=== PATIENT | male | born 1980 | race Two or more races ===

== ENCOUNTER 2021-07-28 21:11 | Emergency (ER) | payer OTHER ==
[~2021-07-28] VITALS: Ht 180.3 cm; Wt 90.7 kg
[2021-07-29 01:01] VITALS: BP 140/80
== END 2021-07-29 04:56 | disposition home or self-care (01) ==
LOC: ER 21:13
DX: S63.601A Unspecified sprain of right thumb, initial encounter (principal); M19.09 Primary osteoarthritis, other specified site; X50.1XXA Overexertion from prolonged static or awkward postures, initial encounter; Y93.89 Activity, other specified; Y92.89 Other specified places as the place of occurrence of the external cause; Y99.0 Civilian activity done for income or pay
CPT/HCPCS: 73130